=== PATIENT | female | born 1980 | race Caucasian/White ===

== ENCOUNTER → 2016-07-19 | Outpatient (CLI) | payer MEDICAID ==
[~2016-07-19] MED LIST: GUMMY VITAMIN PO
== END ==
LOC: HPND 10:14
PROVIDERS: ATTEND Family Medicine
DX: O09.519 Supervision of elderly primigravida, unspecified trimester (principal)
CPT/HCPCS: 36415; 76805; 76813

== ENCOUNTER → 2016-08-16 | Outpatient (CLI) | payer MEDICAID | LOC: HPND 08:46 | PROVIDERS: ATTEND Family Medicine | DX: O09.522 Supervision of elderly multigravida, second trimester (principal) | CPT/HCPCS: 76811; 76817 ==

== ENCOUNTER → 2016-09-27 | Outpatient (CLI) | payer MEDICAID | LOC: HPND 08:44 | PROVIDERS: ATTEND Family Medicine | DX: O09.522 Supervision of elderly multigravida, second trimester (principal); O44.42 Low lying placenta NOS or without hemorrhage, second trimester; Z3A.24 24 weeks gestation of pregnancy | CPT/HCPCS: 76816; 76817 ==

== ENCOUNTER → 2016-11-02 | Outpatient (CLI) | payer MEDICAID | LOC: HPND 13:06 | PROVIDERS: ATTEND Family Medicine | DX: O44.02 Complete placenta previa NOS or without hemorrhage, second trimester (principal); O09.522 Supervision of elderly multigravida, second trimester | CPT/HCPCS: 76816; 76817 ==

== ENCOUNTER 2017-01-10 13:04 | Inpatient (IN) | payer MEDICAID, OTHER ==
[2017-01-10] VITALS (25 sets, daily range): BP systolic 129; BP diastolic 73; PULSE 45–144; RESP 18; TEMP 97.9
--- NOTE | 2017-01-10 16:57 | PD ---
HPI Chief Complaint Sent by PCP after labor check (Rory Addison MD R1) Travel History International Travel<30 Days: No Contact w/Intl Traveler<30Days: No Known Affected Area: No (Rory Addison MD) History of Present Illness HPI 36 year old at 39 5/7 weeks presented from her PCP office for possible bulging bag. Patient states that she has had a normal with no complications to date. When at a normal labor check today her physician advised her to come into the L&D ED for possible bulging bag on examination. She states she had no contractions, gushes of fluid/blood/discharge from her vagina. Notes some mild low back pain. No changes in urinary habits, bowel movements, shortness of breath, chest pain, pain in her legs, or other complaints at this time. (Rory Addison MD) History Past Medical History Medical History: Denies Significant Hx (Rory Addison MD) Past Surgical History Surgical History: No Previous Surgery (Rory Addison MD) Family History Family History: Negative (Rory Addison MD) Social History Alcohol Use: No Tobacco Use: No Substance Abuse: No (Rory Addison MD) Allergies-Medications (Allergen,Severity, Reaction): Coded Allergies: No Known Allergies (Unverified , 01/10/17) Home Meds Reported Medications [Gummy Vitamin] No Conflict Check, 2 TAB PO DAILY for , #60 0 Refills 07/04/16 Review of Systems General / Constitutional: No: Fever, Chills Eyes: No: Diploplia, Blurred Vision, Visual changes, Pain HENT: No: Headaches, Vertigo, Lightheadedness Cardiovascular: No: Irregular Rhythm, Chest Pain or Discomfort, Palpitations, Tachycardia, Syncope, Edema Respiratory: No: Cough, Short of Breath, Wheezing Gastrointestinal: No: Nausea, Vomiting, Diarrhea, Abdominal Pain, Hematemesis, Hematochezia, Constipation, Changes in Bowel Habits, Indigestion Genitourinary: No: Urgency, Frequency, Dysuria, Nocturia, Hematuria, Decreased Urinary Output, Oliguria, Hesitancy, Dribbling, Incontinence Musculoskeletal: No: Limited ROM, Weakness, Cramping, Edema Skin: No Rash, No Itching, No Dryness, No Lumps, No Lesions Neurologic: No: Weakness, Dizziness, Syncope, Headache Psychiatric: No: Anxiety, Depression Endocrine: No: Heat Intolerance, Cold Intolerance, Polydipsia, Polyuria (Rory Addison MD R1) Physical Exam Narrative GENERAL: Well-nourished, well-developed patient. SKIN: Warm and dry. HEAD: Normocephalic and atraumatic. EYES: No scleral icterus. No injection or drainage. ENT: No nasal drainage noted. Mucous membranes pink. Airway patent. NECK: Supple, trachea midline. No JVD. CARDIOVASCULAR: Regular rate and rhythm without murmurs, gallops, or rubs. RESPIRATORY: Breath sounds equal bilaterally. No accessory muscle use. BREASTS: Bilateral exam showed no masses , no retractions, no nipple discharge. ABDOMEN/GI: Abdomen soft, non-tender, bowel sounds present, no rebound, no guarding Gravid consistent with term gestation GENITOURINARY: External Genitalia: intact and normal in appearance Cervix: per quarryman, posterior (deferred, not reexamined at patient request ) Dilatation: Closed Effacement: 70% Station: -1 Presentation: Vertex, confirmed by external exam Membranes: intact Uterine Contractions: occasional Other: No amniotic sac palpated FHT's: Category: 2 Baseline: 160 Reactive: Yes Variability: moderate Decels: none EXTREMITIES: No cyanosis or edema. BACK: Nontender without obvious deformity. No CVA tenderness. NEUROLOGICAL: Awake and alert. Motor and sensory grossly within normal limits. Five out of 5 muscle strength in all muscle groups. Normal speech. (Rory Addison MD R1) MDM Plan Patient is a 36 at 39 and 5/7 who presented to the ED from her PCP for routine labor check. Currently not in labor. Baseline heart rate borderline high , patient noted that the fetus is typically very active at this time of day. - Encourage hydration and monitor FHR prior to discharge - Patient scheduled for induction 01/17/17 - Patient educated on signs/sx for return and reevaluation Seen and d/w Dr. Vj Mendiola (Rory Addison MD R1) Medical Record Reviewed: Yes Attending Attestation Pt seen and examined with Dr Addison. See the residents documentation for details. Pt clinically not in labor, lowlying vertex apparent on Edmundo's. Vag exam not repeated (declined by pt "I've had enough"), competent L&D nurse exam revealed posterior/closed cervix with prominant vertex on vag exam. There is no evidence labor or concerning Hx to insist on repeat exam. Pt peer counselor provided, I agree with the residents findings and plans as written. PCP notified, pt d/c to home with spouse and instructions (Gertrude Mendiola MD) Diagnosis Diagnosis: Primary Impression: 39 weeks gestation of Disposition: 01 DISCHARGE HOME Condition: Stable Rory Addison MD R1 Jan 10, 2017 16:57 Gertrude Mendiola MD Jan 10, 2017 17:24
[2017-01-10] MEDS ORDERED: SODIUM CHLORIDE 0.9% FLUSH 10 ML FLUSH IV FLUSH PRN (20:15)
--- NOTE | 2017-01-10 20:45 | HHI.HP ---
HPI Chief Complaint sent from provider Date Seen: Jan 10, 2017 (Finn Hare MD, R3) Travel History International Travel<30 Days: No Contact w/Intl Traveler<30Days: No Known Affected Area: No (Finn Hare MD, R3) History of Present Illness HPI Ms. Oliveira is a 36 yo G[address] of [address]. Delcid at 39 5/7 weeks who was sent to OB ED by PCP for concern for cervical dilation/bulging bag. [Per patient/ EMR review, patient seen in OB ED this afternoon: Patient reported back pain but did not report contractions, loss of fluid, vaginal bleeding, shortness of breath, leg swelling, or other symptoms. Cervical exam was performed by nursing staff: closed, 70% effaced, -1 station. Subsequent exam by residents/attending physician was deferred by patient. Patient was placed on EFM and found to tachycardia >160 bpm for >10 minutes which subsequently normalized. Initial decision made for patient to discharge home and follow-up with PCP; however, patient was found to have nonreassuring deceleration to so decision made to admit patient for further observation and for BPP tomorrow morning.] Ms. Oliveira reports that she is feeling ok at this time. Patient states that she has some intermittent back pain but that she does not feel that she is having any contractions. Patient reports normal movement at this time. Patient does not report any concern for vaginal bleeding or loss of vaginal fluid. Patient does not report chest pain, shortness of breath, nausea/vomiting, or dysuria. Weeks Gestation: 37 : 1 (Finn Hare MD, R3) History Past Medical History Medical History: Denies Significant Hx (Finn Hare MD, R3) Obstetric History Obstetric History G1 (Finn Hare MD, R3) Past Surgical History Surgical History: No Previous Surgery (Finn Hare MD, R3) Family History Family History: Negative (Finn Hare MD, R3) Social History Alcohol Use: No Tobacco Use: No Substance Abuse: No (Finn Hare MD, R3) Allergies-Medications (Allergen,Severity, Reaction): Coded Allergies: No Known Allergies (Unverified , 01/10/17) Home Meds Reported Medications [Gummy Vitamin] No Conflict Check, 2 TAB PO DAILY for , #60 0 Refills 07/04/16 Review of Systems General / Constitutional: No: Fever Eyes: No: Blurred Vision HENT: No: Headaches Cardiovascular: No: Chest Pain or Discomfort Respiratory: No: Short of Breath Gastrointestinal: No: Nausea, Vomiting, Abdominal Pain Genitourinary: No: Urgency, Dysuria (Finn Hare MD, R3) Physical Exam T 97.9 BP 138/87 HR 73 RR 18 Narrative GENERAL: Well-nourished, well-developed patient. SKIN: Warm and dry. HEAD: Normocephalic and atraumatic. EYES: No scleral icterus. No injection or drainage. ENT: No nasal drainage noted. Mucous membranes pink. Airway patent. CARDIOVASCULAR: Regular rate and rhythm without murmurs, gallops, or rubs. RESPIRATORY: CTAB, normal rate ABDOMEN/GI: Abdomen soft, non-tender, bowel sounds present, no rebound, no guarding Gravid consistent with term gestation EXTREMITIES: No cyanosis or edema. NEUROLOGICAL: Awake and alert. Motor and sensory function grossly within normal limits. FHT's: Category: 2 Baseline: 130 Reactive: Yes Variability: moderate Decels: sporadic, to ~105 bpm lasting several min, emy after contractions PERFORMED THIS AFTERNOON BY NURSING STAFF* GENITOURINARY: External Genitalia: intact and normal in appearance Cervix: per typesetting machine operator/tender, posterior (deferred, not reexamined at patient request ) Dilatation: Closed Effacement: 70% Station: -1 Presentation: Vertex, confirmed by external exam Membranes: intact Uterine Contractions: occasional Other: No amniotic sac palpated (Finn Hare MD, R3) Caprini VTE Risk Assessment Caprini VTE Risk Assessment: Mod/High Risk (score >= 2) VTE Pharm Contraindication: will defer since obs and can ambulate Caprini Risk Assessment Model Point Value = 1 Point Value = 2 Point Value = 3 Point Value = 5 Age 41-60 Minor surgery BMI > 25 kg/m2 Swollen legs Varicose veins or History of unexplained or recurrent spontaneous Oral contraceptives or hormone replacement Sepsis (< 1 month) Serious lung disease, including pneumonia (< 1 month) Abnormal pulmonary function Acute myocardial infarction Congestive heart failure (< 1 month) History of inflammatory bowel disease Medical patient at bed rest Age 61-74 Arthroscopic surgery Major open surgery (> 45 min) Laparoscopic surgery (> 45 min) Malignancy Confined to bed (> 72 hours) Immobilizing plaster cast Central venous access Age >= 75 History of VTE Family history of VTE Factor V Leiden Prothrombin [id number] Lupus anticoagulant Anticardiolipin antibodies Elevated serum homocysteine Heparin-induced thrombocytopenia Other congenital or acquired thrombophilia Stroke (< 1 month) Elective arthroplasty Hip, pelvis, or leg fracture Acute spinal cord injury (< 1 month) Prophylaxis Regimen Total Risk Factor Score Risk Level Prophylaxis Regimen 0-1 Low Early ambulation 2 Moderate Order ONE of the following: *Sequential Compression Device (SCD) *Heparin 5000 units SQ BID 3-4 Higher Order ONE of the following medications: *Heparin 5000 units SQ TID *Enoxaparin/Lovenox 40 mg SQ daily (WT < 150 kg, CrCl > 30 mL/min) *Enoxaparin/Lovenox 30 mg SQ daily (WT < 150 kg, CrCl > 10-29 mL/min) *Enoxaparin/Lovenox 30 mg SQ BID (WT < 150 kg, CrCl > 30 mL/min) AND/OR *Sequential Compression Device (SCD) 5 or more Highest Order ONE of the following medications: *Heparin 5000 units SQ TID (Preferred with Epidurals) *Enoxaparin/Lovenox 40 mg SQ daily (WT < 150 kg, CrCl > 30 mL/min) *Enoxaparin/Lovenox 30 mg SQ daily (WT < 150 kg, CrCl > 10-29 mL/min) *Enoxaparin/Lovenox 30 mg SQ BID (WT < 150 kg, CrCl > 30 mL/min) AND *Sequential Compression Device (SCD) (Finn Hare MD, R3) Data Data Vital Signs Reviewed: Yes Orders Orders Place In Observation (01/10/17 ) Vital Signs (Adult) [id number] AWAKE (01/10/17 20:03) Heart (01/10/17 20:03) Activity Bed Rest With Brp (01/10/17 20:03) Sodium Chloride 0.9% Flush (Ns Flush) (01/10/17 21:00) Sodium Chloride 0.9% Flush (Ns Flush) (01/10/17 20:15) Complete Blood Count With Diff (01/10/17 20:03) Type And Screen (01/10/17 20:03) Diet Regular Basic (01/10/17 Dinner) Us Ob Bpp Wo Nst (01/11/17 08:00) Group B Strep: Negative (Finn Hare MD, R3) Assessment/Plan Problem List: (1) 39 weeks gestation of ICD Codes: Z3A.39 - 39 weeks gestation of Status: Acute (2) Advanced maternal age, 1st ICD Codes: O09.519 - Supervision of elderly primigravida, unspecified trimester Status: Acute Assessment and Plan 36 at 39 5/7 weeks -Cervix closed/70%/-1 -Cat 2 rhythm- Concern for prolonged deceleration on EFM -Occ contractions on CTG; patient cannot feel -GBS negative Plan: -Will admit for observation and continue EFM -Will plan for AM BPP to assure well being who presented to the ED from her PCP for routine labor check. Currently not in labor. Baseline heart rate borderline high, patient noted that the fetus is typically very active at this time of day. (Finn Hare MD, R3) Attestation Patient seen and examined at bedside. Plan to admit for observation. BPP in am. All questions answered. (Antonia Gaines MD) Finn Hare MD, R3 Jan 10, 2017 20:45 Antonia Gaines MD Jan 10, 2017 21:54
[2017-01-10] MEDS: SODIUM CHLORIDE 0.9% FLUSH 10 ML FLUSH IV FLUSH SCH (21:00)
[2017-01-10 21:39] LABS: AUTOMATED NEUTROPHIL # 6.2 TH/MM3 (1.8-7.7); BASOPHIL # 0.1 TH/MM3 (0-0.2); BASOPHIL % 0.6 % (0.0-2.0); EOSINOPHIL # 0.1 TH/MM3 (0-0.4); EOSINOPHIL % 1.3 % (0.0-4.0); HEMATOCRIT 34.5 % (35.0-46.0); HEMO FLAGS DIFF FINAL; LYMPH % 28.4 % (9.0-44.0); LYMPHOCYTE # 2.9 TH/MM3 (1.0-4.8); MEAN CELL VOLUME 91.4 FL (80.0-100.0); MEAN CORPUSCULAR HEMOGLOBIN 30.7 PG (27.0-34.0); MEAN CORPUSCULAR HGB CONC 33.6 % (32.0-36.0); MONO % 9.2 % (0.0-8.0); NEUT % 60.5 % (16.0-70.0); PLATELET COUNT 228 TH/MM3 (150-450); RED BLOOD COUNT 3.78 MIL/MM3 (4.00-5.30); RED CELL DISTRIBUTION WIDTH 13.3 % (11.6-17.2); WHITE BLOOD COUNT 10.2 TH/MM3 (4.0-11.0)
[2017-01-11] VITALS (158 sets, daily range): BP systolic 87–159; BP diastolic 57–104; PULSE 53–152; RESP 0–20; TEMP 98–98.6; O2SAT 100
--- NOTE | 2017-01-11 08:00 | PD.OB.ANTE ---
Subjective Diagnosis: (1) 39 weeks gestation of (2) Advanced maternal age, 1st Interval History No acute issues overnight. Vitals are stable, patient remains afebrile. She denies any vaginal bleeding or discharge. No gush or leaking of fluid. Positive movement. Antepartum ROS: Reports: movement normal, Denies: New complaints, Loss of fluid, Vaginal bleeding, Contractions (Deirdre Duffy MD, R3) Objective Vital Signs Vital Signs Date Time Temp Pulse Resp B/P (MAP) Pulse Ox O2 Delivery O2 Flow Rate FiO2 01/11/17 07:39 67 126/69 (88) 01/11/17 07:37 98.1 01/11/17 07:35 70 01/11/17 07:30 69 01/11/17 05:20 63 01/11/17 05:15 60 01/11/17 05:10 66 01/11/17 05:05 63 01/11/17 05:00 66 01/11/17 04:55 63 01/11/17 04:50 63 01/11/17 04:45 70 01/11/17 04:40 59 01/11/17 04:35 60 01/11/17 04:30 74 01/11/17 04:25 66 01/11/17 04:20 68 01/11/17 04:15 64 01/11/17 04:10 65 01/11/17 04:00 73 01/11/17 03:55 70 01/11/17 03:50 68 01/11/17 03:45 72 01/11/17 03:40 72 01/11/17 03:35 72 01/11/17 03:30 72 01/11/17 03:25 70 01/11/17 03:20 75 01/11/17 03:15 68 01/11/17 03:10 75 01/11/17 03:05 72 01/11/17 03:00 71 01/11/17 02:55 74 01/11/17 02:50 70 01/11/17 02:45 67 01/11/17 02:40 64 01/11/17 02:35 68 01/11/17 02:30 72 01/11/17 02:25 72 01/11/17 02:20 73 01/11/17 02:15 70 01/11/17 02:10 78 01/11/17 02:05 73 01/11/17 02:00 72 01/11/17 01:55 73 01/11/17 01:50 69 01/11/17 01:45 78 01/11/17 01:35 78 01/11/17 01:25 152 01/11/17 01:20 79 01/11/17 01:15 72 01/11/17 01:10 73 01/11/17 01:05 77 01/11/17 01:00 18 01/11/17 01:00 54 01/11/17 00:50 70 01/11/17 00:45 71 01/11/17 00:40 72 01/11/17 00:35 73 01/11/17 00:30 70 01/11/17 00:25 69 01/11/17 00:20 77 01/11/17 00:15 73 01/11/17 00:10 71 01/11/17 00:05 70 01/11/17 00:00 67 01/10/17 23:49 18 01/10/17 23:49 18 01/10/17 23:45 74 01/10/17 23:40 72 01/10/17 23:35 76 01/10/17 23:30 66 01/10/17 23:25 72 01/10/17 23:20 74 01/10/17 23:15 62 01/10/17 23:10 74 01/10/17 23:05 67 01/10/17 23:00 68 01/10/17 23:00 18 01/10/17 22:55 144 01/10/17 22:50 105 01/10/17 22:40 53 01/10/17 22:30 45 01/10/17 22:10 61 01/10/17 22:05 64 01/10/17 22:00 69 01/10/17 21:50 67 01/10/17 21:45 97.9 63 01/10/17 21:43 63 129/73 (91) 01/10/17 21:42 18 01/10/17 21:40 62 01/10/17 21:35 62 01/10/17 21:30 63 Lab & Micro Results Test 01/10/17 20:40 White Blood Count 10.2 TH/MM3 Red Blood Count 3.78 MIL/MM3 Hemoglobin 11.6 GM/DL Hematocrit 34.5 % Mean Corpuscular Volume 91.4 FL Mean Corpuscular Hemoglobin 30.7 PG Mean Corpuscular Hemoglobin Concent 33.6 % Red Cell Distribution Width 13.3 % Platelet Count 228 TH/MM3 Mean Platelet Volume 10.1 FL Neutrophils (%) (Auto) 60.5 % Lymphocytes (%) (Auto) 28.4 % Monocytes (%) (Auto) 9.2 % Eosinophils (%) (Auto) 1.3 % Basophils (%) (Auto) 0.6 % Neutrophils # (Auto) 6.2 TH/MM3 Lymphocytes # (Auto) 2.9 TH/MM3 Monocytes # (Auto) 0.9 TH/MM3 Eosinophils # (Auto) 0.1 TH/MM3 Basophils # (Auto) 0.1 TH/MM3 CBC Comment DIFF FINAL Differential Comment Physical Exam GENERAL: Well-nourished, well-developed patient. CARDIOVASCULAR: Regular rate and rhythm without murmurs, gallops, or rubs. RESPIRATORY: Breath sounds equal bilaterally. No accessory muscle use. ABDOMEN/GI: Abdomen soft, non-tender. Fundus: 39 GENITOURINARY: External Genitalia: intact and normal in appearance Cervix: posterior Dilatation: 0 Effacement: 70 Station: -1 Presentation: vertex Membranes: intact Uterine Contractions: none FHT's: Category: I Baseline: 140 Reactive: + Variability: moderate Decels: none EXTREMITIES: No cyanosis or edema, non-tender, without signs of DVT. (Deirdre Duffy MD, R3) Assessment and Plan Problem List: (1) 39 weeks gestation of ICD Codes: Z3A.39 - 39 weeks gestation of Status: Acute (2) Advanced maternal age, 1st ICD Codes: O09.519 - Supervision of elderly primigravida, unspecified trimester Status: Acute Assessment and Plan 36 year old at 39-6/7 weeks who presented to the ED from her PCP for routine labor check. Currently not in labor. 1. IUP- Category I tracing, reassuring. 2. Prolonged Deceleration/Category II tracing in ED yesterday- Monitoring overnight reassuring. BPP this AM. -Cervix closed/70%/-1 3. GBS negative 4. BPP 8/8 this AM, CONSTANCE 9.8, cephalic presentation, EFW 13th%ile. MFM recommends delivery by induction. Will admit to L&D for IOL. dw Dr. Gaines (Deirdre Duffy MD, R3) Attestation Patient seen at bedside. Recommended plan for induction d/w patient. R/B/A of induction reviewed. All questions answered. (Antonia Gaines MD) Deirdre Duffy MD, R3 Jan 11, 2017 07:59 Antonia Gaines MD Jan 11, 2017 09:26
[2017-01-11] MEDS: SODIUM CHLORIDE 0.9% FLUSH 10 ML FLUSH IV FLUSH SCH ×2 (09:00→21:00)
[2017-01-11] MEDS ORDERED: SODIUM CHLOR 0.9% 1000 ML INJ 1,000 ML OTHER PRN (09:12)
[2017-01-11] MEDS ORDERED: SODIUM CHLORID 0.9% 500 ML INJ 500 ML IV PRN (09:15)
[2017-01-11] MEDS ORDERED: LIDOCAINE HCL 1% 50 ML VIAL INFIL PRN (09:15)
[2017-01-11] MEDS ORDERED: OXYTOCIN 30 UNITS-500ML PREMIX 500 ML IV ONE (09:15)
[2017-01-11] MEDS ORDERED: MINERAL OIL 10 ML VIAL TOPICAL PRN (09:15)
[2017-01-11] MEDS ORDERED: ONDANSETRON HCL 4 MG/2 ML VIAL IV PRN (09:15)
[2017-01-11] MEDS ORDERED: LACTATED RINGER'S 1000 ML INJ 1,000 ML IV PRN (09:15)
[2017-01-11] MEDS ORDERED: LIDOCAINE HCL 1% 50 ML VIAL I-DERMAL PRN (09:15)
[2017-01-11] MEDS ORDERED: CITRIC ACID-SODIUM CITRATE LIQ 30 ML UDC PO SCH (09:15)
[2017-01-11] MEDS ORDERED: SODIUM CHLORIDE 0.9% FLUSH 10 ML FLUSH IV FLUSH PRN (09:15)
[2017-01-11] MEDS ORDERED: SODIUM CHLOR 0.9% 1000 ML INJ 1,000 ML IV PRN (09:35)
[2017-01-11] MEDS ORDERED: LACTATED RINGER'S 1000 ML INJ 1,000 ML IV SCH (10:00)
[2017-01-11] MEDS ORDERED: MISOPROSTOL 25 MCG SUPP VAGINAL ONE (10:00)
[2017-01-11] MEDS: LACTATED RINGER'S 1000 ML INJ 1,000 ML IV SCH ×2 (11:16→18:00)
[2017-01-11 12:28] LABS: AUTOMATED NEUTROPHIL # 6.1 TH/MM3 (1.8-7.7); BASOPHIL % 0.5 % (0.0-2.0); EOSINOPHIL # 0.1 TH/MM3 (0-0.4); EOSINOPHIL % 1.5 % (0.0-4.0); HEMATOCRIT 33.8 % (35.0-46.0); HEMO FLAGS DIFF FINAL; MEAN CELL VOLUME 91.1 FL (80.0-100.0); MEAN CORPUSCULAR HEMOGLOBIN 30.3 PG (27.0-34.0); MEAN CORPUSCULAR HGB CONC 33.3 % (32.0-36.0); MONO % 9.6 % (0.0-8.0); NEUT % 66.4 % (16.0-70.0); PLATELET COUNT 233 TH/MM3 (150-450); RED BLOOD COUNT 3.71 MIL/MM3 (4.00-5.30); RED CELL DISTRIBUTION WIDTH 13.5 % (11.6-17.2); WHITE BLOOD COUNT 9.1 TH/MM3 (4.0-11.0)
[2017-01-11] MEDS ORDERED: MISOPROSTOL 25 MCG SUPP VAGINAL PRN (14:00)
--- NOTE | 2017-01-11 14:11 | PD.LABORPN ---
Subjective Subjective Patient seen and examined. Doing well has no complaints. She's feeling the baby moving. She denies any feelings of contraction. She understands that it will take quite some time with the Cytotec in order to dilate the cervix. She also understands the game plan to star Pitocin after cervical ripening. She is very excited and can't wait to see her new baby. Objective Vital Signs Vital Signs Date Time Temp Pulse Resp B/P (MAP) Pulse Ox O2 Delivery O2 Flow Rate FiO2 01/11/17 12:18 98.6 01/11/17 12:15 70 135/67 (89) 01/11/17 10:40 73 01/11/17 10:35 74 01/11/17 10:30 72 01/11/17 10:25 73 01/11/17 10:20 73 01/11/17 10:15 75 01/11/17 09:50 68 01/11/17 09:45 74 01/11/17 09:40 70 01/11/17 09:35 70 01/11/17 09:30 70 01/11/17 09:25 80 01/11/17 09:20 72 01/11/17 09:15 64 01/11/17 09:10 68 01/11/17 09:05 61 01/11/17 09:00 62 01/11/17 08:55 74 01/11/17 08:50 62 01/11/17 08:45 62 01/11/17 07:39 67 126/69 (88) 01/11/17 07:37 98.1 01/11/17 07:35 70 01/11/17 07:30 69 01/11/17 07:20 61 01/11/17 07:15 61 01/11/17 07:10 61 01/11/17 07:05 60 01/11/17 07:00 60 01/11/17 06:55 58 01/11/17 06:50 60 01/11/17 06:45 60 01/11/17 06:40 66 01/11/17 06:35 67 01/11/17 06:30 63 01/11/17 06:25 66 01/11/17 06:20 60 01/11/17 06:15 59 01/11/17 06:10 66 01/11/17 06:05 68 Objective GENERAL: Well-nourished, well-developed patient. CARDIOVASCULAR: Regular rate and rhythm without murmurs, gallops, or rubs. RESPIRATORY: Breath sounds equal bilaterally. No accessory muscle use. ABDOMEN/GI: Abdomen soft, non-tender. Fundus: 39 GENITOURINARY: External Genitalia: intact and normal in appearance Cervix: posterior Dilatation: 1 Effacement: 70 Station: -2 Presentation: vertex Membranes: intact Uterine Contractions: none FHT's: Category: I Baseline: 140 Reactive: Up to 160 Variability: moderate Decels: none EXTREMITIES: No cyanosis or edema, non-tender, without signs of DVT. Weeks Gestation: 39 Gest Age Assessed Date: Jan 11, 2017 Gest Age Assessed Time: 14:00 Pt started active labor?: No Medical induction of labor?: Yes Medical induction start date: Jan 11, 2017 Medical induction start time: 08:00 Artificial rupture of membrane: No Assessment/Plan Problem List: (1) 39 weeks gestation of ICD Codes: Z3A.39 - 39 weeks gestation of Status: Acute (2) Advanced maternal age, 1st ICD Codes: O09.519 - Supervision of elderly primigravida, unspecified trimester Status: Acute Assessment and Plan This is a 36-year-old at 39/6 weeks gestational age admitted for induction of labor. 1. Induction of labor: GBS negative -Continuous monitoring for contractions: None -Continuous heart monitoring: Category 1 -Cytotec for cervical ripening -Anticipate transition to Pitocin -Continue expectant management Larry Delcid MD, R3 Jan 11, 2017 14:11
[2017-01-11 17:15] LABS: BLOOD, URINE SMALL (NEG); GLUCOSE,URINE NEG (NEG); KETONE, URINE NEG (NEG); NITRITE,URINE NEG (NEG); PH, URINE 6.5 (5.0-8.5); SQUAMOUS EPITHELIAL CELL URINE <1 /hpf (0-5); URINE COLOR YELLOW (YELLW/STRAW)
[2017-01-11 17:21] LABS: COMMENT (UR) CULT NOT INDICATED; CULTURE IF INDICATED CULT NOT INDICATED
--- NOTE | 2017-01-11 17:37 | PD.LABORPN ---
Subjective Subjective Patient seen and examined. Doing well. She reports some pelvic pressure. She does desire an epidural when it is appropriate. Endorses +FM. She otherwise does not have any complaints or questions. Objective Vital Signs Vital Signs Date Time Temp Pulse Resp B/P (MAP) Pulse Ox O2 Delivery O2 Flow Rate FiO2 01/11/17 16:30 19 01/11/17 16:30 20 01/11/17 16:15 98.0 60 151/75 (100) 01/11/17 15:30 18 01/11/17 14:30 17 01/11/17 13:30 18 01/11/17 12:30 19 01/11/17 12:18 98.6 01/11/17 12:15 70 135/67 (89) 01/11/17 10:40 73 01/11/17 10:35 74 01/11/17 10:30 72 01/11/17 10:25 73 01/11/17 10:20 73 01/11/17 10:15 75 01/11/17 09:50 68 01/11/17 09:45 74 01/11/17 09:40 70 01/11/17 09:35 70 Objective Pelvic Exam (from prior exam at 16:15): Cervix: posterior Dilatation: 2cm Effacement: 80% Station: -2 Presentation: [-] Membranes: intact Uterine Contractions: none on tocometer FHT's: Category: I Baseline: 130s Reactive: yes Variability: mod Decels: none Weeks Gestation: 39 Gest Age Assessed Date: Jan 11, 2017 Gest Age Assessed Time: 14:00 Pt started active labor?: No Medical induction of labor?: Yes Medical induction start date: Jan 11, 2017 Medical induction start time: 08:00 Artificial rupture of membrane: No Assessment/Plan Problem List: (1) 39 weeks gestation of ICD Codes: Z3A.39 - 39 weeks gestation of Status: Acute (2) Advanced maternal age, 1st ICD Codes: O09.519 - Supervision of elderly primigravida, unspecified trimester Status: Acute Assessment and Plan Very pleasant 36-year-old woman at 39/6 weeks gestational age admitted for induction of labor. 1. Induction of labor: GBS negative -Continuous monitoring for contractions: None -Continuous heart monitoring: Category 1 -Cytotec for cervical ripening -Anticipate transition to Pitocin -Continue expectant management -Desiring epidural when appropriate Ramo Greene MD R2 Jan 11, 2017 17:37
[2017-01-11] MEDS ORDERED: SODIUM CHLORIDE 0.9% FLUSH 10 ML FLUSH IV FLUSH SCH (21:00)
[2017-01-11] MEDS ORDERED: ePHEDrine/NS 25 MG/5 ML SYR ONE (21:20)
[2017-01-11] MEDS ORDERED: fentaNYL 2MCG-BUPIV 0.125% INJ 100 ML ONE (21:20)
--- NOTE | 2017-01-11 21:23 | PD.LABORPN ---
Subjective Subjective Patient uncomfortable, requesting pain medication Objective Vital Signs Vital Signs Date Time Temp Pulse Resp B/P (MAP) Pulse Ox O2 Delivery O2 Flow Rate FiO2 01/11/17 19:18 98.5 18 01/11/17 19:18 53 108/60 (76) 01/11/17 18:30 20 01/11/17 18:30 0 01/11/17 17:30 18 01/11/17 16:30 19 01/11/17 16:30 20 01/11/17 16:15 98.0 60 151/75 (100) 01/11/17 15:30 18 01/11/17 14:30 17 01/11/17 13:30 18 Objective Pelvic Exam: Cervix: [3] Dilatation: [3] Effacement: [90] Station: [-1] Presentation: [vtx] Membranes: [spontaneously ruptured] Uterine Contractions: [q3m] FHT's: 140s, moderate LTV, appears to have earlies, IUPC placed to monitor after risks/benefits discussed with patietn Of note, SVE at 2014 was 2/80/-2, posterior, now 3/90/-1, midposition Weeks Gestation: 39 Gest Age Assessed Date: Jan 11, 2017 Gest Age Assessed Time: 14:00 Pt started active labor?: No Medical induction of labor?: Yes Medical induction start date: Jan 11, 2017 Medical induction start time: 08:00 Artificial rupture of membrane: No Assessment/Plan Problem List: (1) 39 weeks gestation of ICD Codes: Z3A.39 - 39 weeks gestation of Status: Acute (2) Advanced maternal age, 1st ICD Codes: O09.519 - Supervision of elderly primigravida, unspecified trimester Status: Acute Zhanna Dior MD Jan 11, 2017 21:23
[2017-01-11] MEDS ORDERED: OXYTOCIN 30 UNITS-500ML PREMIX 500 ML ONE (22:21)
--- NOTE | 2017-01-11 23:06 | PD.LABORPN ---
Subjective Subjective Patient seen and examined. Pain is tolerable. She is feeling the baby moving. She is feeling pelvic pressure. She currently is not wanting to push due to the pain. We are limiting her labor down and anticipate delivery of the baby soon. Objective Vital Signs Vital Signs Date Time Temp Pulse Resp B/P (MAP) Pulse Ox O2 Delivery O2 Flow Rate FiO2 01/11/17 22:31 68 109/68 (82) 01/11/17 22:30 84 01/11/17 22:21 79 109/85 (93) 01/11/17 22:20 73 01/11/17 22:15 69 111/65 (80) 01/11/17 22:15 73 01/11/17 22:10 66 01/11/17 22:10 67 121/63 (82) 01/11/17 22:05 61 01/11/17 22:05 63 109/76 (87) 01/11/17 22:00 69 121/69 (86) 01/11/17 21:56 107 114/72 (86) 01/11/17 21:55 64 01/11/17 21:54 20 01/11/17 21:51 69 109/60 (76) 01/11/17 21:50 66 01/11/17 21:46 68 118/57 (77) 01/11/17 21:45 69 100 01/11/17 21:43 71 141/102 (115) 01/11/17 21:40 61 01/11/17 21:40 68 119/66 (83) 100 01/11/17 21:36 66 148/104 (119) 01/11/17 21:35 67 100 01/11/17 21:32 64 159/76 (103) 01/11/17 21:30 64 154/79 (104) 100 01/11/17 21:30 68 01/11/17 21:25 73 100 01/11/17 21:20 64 100 01/11/17 19:18 98.5 18 01/11/17 19:18 53 108/60 (76) 01/11/17 18:30 20 01/11/17 18:30 0 01/11/17 17:30 18 01/11/17 16:30 19 01/11/17 16:30 20 01/11/17 16:15 98.0 60 151/75 (100) 01/11/17 15:30 18 Objective GENERAL: Well-nourished, well-developed patient. CARDIOVASCULAR: Regular rate and rhythm without murmurs, gallops, or rubs. RESPIRATORY: Breath sounds equal bilaterally. No accessory muscle use. ABDOMEN/GI: Abdomen soft, non-tender. Fundus: 39 GENITOURINARY: External Genitalia: intact and normal in appearance Cervix: posterior Dilatation: 10 Effacement: 100 Station: 1 Presentation: vertex Membranes: Rupture Uterine Contractions: Every 3-4 minutes FHT's: Category: 2 Baseline: 160 Reactive: Up to 165 Variability: moderate Decels: variables Weeks Gestation: 39 Gest Age Assessed Date: Jan 11, 2017 Gest Age Assessed Time: 14:00 Pt started active labor?: No Medical induction of labor?: Yes Medical induction start date: Jan 11, 2017 Medical induction start time: 08:00 Artificial rupture of membrane: No Assessment/Plan Problem List: (1) 39 weeks gestation of ICD Codes: Z3A.39 - 39 weeks gestation of Status: Acute (2) Advanced maternal age, 1st ICD Codes: O09.519 - Supervision of elderly primigravida, unspecified trimester Status: Acute Assessment and Plan This is a 36-year-old at 39/6 weeks gestational age admitted for induction of labor. 1. Induction of labor: GBS negative -Continuous monitoring for contractions: Every 3-4 minutes -Continuous heart monitoring: Category 2 -Epidural in place -Amnio infusion to be placed -Scapal monitoring to be placed -Continue expectant management Larry Delcid MD, R3 Jan 11, 2017 23:06
[2017-01-11] MEDS ORDERED: ePHEDrine/NS 25 MG/5 ML SYR IV PRN (23:30)
[2017-01-11] MEDS ORDERED: NO SYSTEM NARCOTICS PRN (23:30)
[2017-01-11] MEDS ORDERED: fentaNYL 2MCG-BUPIV 0.125% 100 ML EPIDURAL SCH (23:30)
[2017-01-11] MEDS ORDERED: DO NOT ADMINISTER ANTICOAGULANTS PRN (23:30)
[2017-01-12] VITALS (42 sets, daily range): BP systolic 84–154; BP diastolic 45–99; PULSE 67–125; RESP 12–20; TEMP 97.9–100.3; O2SAT 99
[2017-01-12] MEDS ORDERED: OXYTOCIN 30 UNITS-500ML PREMIX 500 ML IV SCH ×2 (00:30→01:45)
--- NOTE | 2017-01-12 01:43 | PD.OB.DELI ---
Weeks gestation: 39 Gest age assessed date: Jan 11, 2017 Gest age assessed time: 14:00 Pt started active labor?: No Medical induction of labor?: Yes Medical induction start date: Jan 11, 2017 Medical induction start time: 08:00 Artificial rupture of membrane: No Anesthesia: Epidural Episiotomy: None Vaginal Delivery: Normal, Spontaneous Presentation: Occiput posterior Nuchal Cord: x1 Delayed cord clamping (45 sec): Yes Infant: Male, Single Delivery date: Jan 12, 2017 Delivery time: 01:30 One Minute : 8 Five Minute : 9 Weight: 3005 Placenta: Spontaneous delivery, Intact, 3 vessel cord Additional Information Healthy male delivered with a nuchal cord x1. Placenta spontaneously delivered without complications. Pitocin started post delivery Larry Delcid MD, R3 Jan 12, 2017 01:43
[2017-01-12] MEDS ORDERED: ACETAMINOPHEN 325 MG TAB PO PRN (01:45)
[2017-01-12] MEDS ORDERED: BENZOCAINE 20% TOPICAL SPRAY 60 ML CAN TOPICAL PRN (01:45)
[2017-01-12] MEDS ORDERED: ONDANSETRON ODT 4 MG TAB PO PRN (01:45)
[2017-01-12] MEDS ORDERED: WITCH HAZEL 50%/GLYCERIN 12.5% 40 PAD JAR TOPICAL PRN (01:45)
[2017-01-12] MEDS ORDERED: ZOLPIDEM TARTRATE 5 MG TAB PO PRN (01:45)
[2017-01-12] MEDS ORDERED: SODIUM CHLORIDE 0.9% FLUSH 10 ML FLUSH IV FLUSH PRN (01:45)
[2017-01-12] MEDS ORDERED: DOCUSATE SODIUM 50 MG/SENNA 8.6 MG TAB PO PRN (01:45)
[2017-01-12] MEDS ORDERED: ALUMINUM/MAGNESIUM/SIMETH 30 ML CUP PO PRN (01:45)
[2017-01-12] MEDS: IBUPROFEN 600 MG TAB PO PRN ×2 (02:17→20:29)
[2017-01-12] MEDS ORDERED: MISOPROSTOL 200 MCG TAB RECTAL ONE (02:30)
[2017-01-12] MEDS ORDERED: ACETAMINOPHEN/CODEINE 300 MG/30 MG TAB PO PRN (03:15)
[2017-01-12] MEDS: ACETAMINOPHEN/CODEINE 300 MG/30 MG TAB PO PRN ×2 (03:23→07:31)
--- NOTE | 2017-01-12 07:54 | PD.OB.ANTE ---
Subjective Diagnosis: (1) 39 weeks gestation of (2) Advanced maternal age, 1st (3) care following vaginal delivery Interval History day # 0. AFVSS overnight. Pain is tolerable. Decreased lochia. Denies dysuria. No breast tenderness. She is feeding the baby via breast. Appetite good. No nausea or vomiting. Negative flatus. Negative bowel movement. Ambulating well. Denies calf pain, shortness of breath, or cough. She is complaining of weakness in her legs, informed her it should improve as the epidural was Otherwise, she is doing well this morning and has no other complaints. Antepartum ROS: Reports: Vaginal bleeding Objective Vital Signs Vital Signs Date Time Temp Pulse Resp B/P (MAP) Pulse Ox O2 Delivery O2 Flow Rate FiO2 01/12/17 07:35 96 111/65 (80) 01/12/17 07:26 90 100/65 (77) 01/12/17 06:30 98 84/53 (63) 01/12/17 06:01 116 87/45 (59) 01/12/17 05:30 92 99/66 (77) 01/12/17 05:09 106 97/45 (62) 01/12/17 04:30 101 94/58 (70) 01/12/17 04:01 98 102/70 (81) 01/12/17 03:31 111/81 (91) 01/12/17 03:16 18 01/12/17 03:15 91 117/96 (103) 01/12/17 03:01 79 15 119/72 (88) 01/12/17 02:50 15 01/12/17 02:46 79 128/99 (109) 01/12/17 02:31 81 102/70 (81) 01/12/17 02:20 16 01/12/17 02:16 78 134/64 (87) 01/12/17 02:03 97.9 15 01/12/17 02:00 86 122/76 (91) 01/12/17 01:50 18 01/12/17 01:46 72 117/91 (100) 01/12/17 01:45 15 01/12/17 01:31 104 126/83 (97) 01/12/17 01:25 101 01/12/17 01:15 125 154/88 (110) 01/12/17 01:01 106 139/96 (110) 01/12/17 00:55 80 01/12/17 00:50 85 01/12/17 00:31 119 118/86 (97) 01/12/17 00:25 85 01/12/17 00:20 89 01/12/17 00:20 89 01/12/17 00:02 77 115/63 (80) 01/12/17 00:00 97 01/11/17 23:55 88 01/11/17 23:55 88 01/11/17 23:50 103 01/11/17 23:50 103 01/11/17 23:32 93 118/65 (82) 01/11/17 23:30 99 01/11/17 23:25 80 01/11/17 23:20 83 01/11/17 23:20 20 01/11/17 23:18 98.4 01/11/17 23:15 81 105/80 (88) 01/11/17 23:15 76 01/11/17 23:10 84 01/11/17 23:05 85 01/11/17 23:02 75 92/68 (76) 01/11/17 23:01 109 87/59 (68) 01/11/17 23:00 83 01/11/17 22:55 81 01/11/17 22:50 81 01/11/17 22:31 68 109/68 (82) 01/11/17 22:30 84 01/11/17 22:21 79 109/85 (93) 01/11/17 22:20 73 01/11/17 22:15 69 111/65 (80) 01/11/17 22:15 73 01/11/17 22:10 66 01/11/17 22:10 67 121/63 (82) 01/11/17 22:05 61 01/11/17 22:05 63 109/76 (87) 01/11/17 22:00 69 121/69 (86) 01/11/17 21:56 107 114/72 (86) 01/11/17 21:55 64 01/11/17 21:54 20 01/11/17 21:51 69 109/60 (76) 01/11/17 21:50 66 01/11/17 21:46 68 118/57 (77) 01/11/17 21:45 69 100 01/11/17 21:43 71 141/102 (115) 01/11/17 21:40 61 01/11/17 21:40 68 119/66 (83) 100 01/11/17 21:36 66 148/104 (119) 01/11/17 21:35 67 100 01/11/17 21:32 64 159/76 (103) 01/11/17 21:30 64 154/79 (104) 100 01/11/17 21:30 68 01/11/17 21:25 73 100 01/11/17 21:20 64 100 01/11/17 19:18 98.5 18 01/11/17 19:18 53 108/60 (76) 01/11/17 18:30 20 01/11/17 18:30 0 01/11/17 17:30 18 01/11/17 16:30 19 01/11/17 16:30 20 01/11/17 16:15 98.0 60 151/75 (100) 01/11/17 15:30 18 01/11/17 14:30 17 01/11/17 13:30 18 01/11/17 12:30 19 01/11/17 12:18 98.6 01/11/17 12:15 70 135/67 (89) 01/11/17 10:40 73 01/11/17 10:35 74 01/11/17 10:30 72 01/11/17 10:25 73 01/11/17 10:20 73 01/11/17 10:15 75 01/11/17 09:50 68 01/11/17 09:45 74 01/11/17 09:40 70 01/11/17 09:35 70 01/11/17 09:30 70 01/11/17 09:25 80 01/11/17 09:20 72 01/11/17 09:15 64 01/11/17 09:10 68 01/11/17 09:05 61 01/11/17 09:00 62 01/11/17 08:55 74 01/11/17 08:50 62 01/11/17 08:45 62 Lab & Micro Results Test 01/11/17 11:35 01/11/17 16:10 White Blood Count 9.1 TH/MM3 Red Blood Count 3.71 MIL/MM3 Hemoglobin 11.2 GM/DL Hematocrit 33.8 % Mean Corpuscular Volume 91.1 FL Mean Corpuscular Hemoglobin 30.3 PG Mean Corpuscular Hemoglobin Concent 33.3 % Red Cell Distribution Width 13.5 % Platelet Count 233 TH/MM3 Mean Platelet Volume 9.3 FL Neutrophils (%) (Auto) 66.4 % Lymphocytes (%) (Auto) 22.0 % Monocytes (%) (Auto) 9.6 % Eosinophils (%) (Auto) 1.5 % Basophils (%) (Auto) 0.5 % Neutrophils # (Auto) 6.1 TH/MM3 Lymphocytes # (Auto) 2.0 TH/MM3 Monocytes # (Auto) 0.9 TH/MM3 Eosinophils # (Auto) 0.1 TH/MM3 Basophils # (Auto) 0.0 TH/MM3 CBC Comment DIFF FINAL Differential Comment Urine Color YELLOW Urine Turbidity CLEAR Urine pH 6.5 Urine Specific [place] 1.020 Urine Protein NEG mg/dL Urine Glucose (UA) NEG mg/dL Urine Ketones NEG mg/dL Urine Occult Blood SMALL Urine Nitrite NEG Urine Bilirubin NEG Urine Urobilinogen LESS THAN 2.0 MG/DL Urine Leukocyte Esterase NEG Urine RBC 2 /hpf Urine WBC 2 /hpf Urine Squamous Epithelial Cells <1 /hpf Microscopic Urinalysis Comment CULT NOT INDICATED Urine Opiates Screen NEG Urine Barbiturates Screen NEG Urine Amphetamines Screen NEG Urine Benzodiazepines Screen NEG Urine Cocaine Screen NEG Urine Cannabinoids Screen NEG Physical Exam GENERAL: Well-nourished, well-developed patient. CARDIOVASCULAR: Regular rate and rhythm without murmurs, gallops, or rubs. RESPIRATORY: Breath sounds equal bilaterally. No accessory muscle use. ABDOMEN/GI: Abdomen soft, non-tender. : Fundus is firm and smaller in size EXTREMITIES: No cyanosis or edema, non-tender, without signs of DVT. Assessment and Plan Problem List: (1) 39 weeks gestation of ICD Codes: Z3A.39 - 39 weeks gestation of Status: Acute (2) Advanced maternal age, 1st ICD Codes: O09.519 - Supervision of elderly primigravida, unspecified trimester Status: Acute Assessment and Plan 36 y/o female who is PPD# 0 s/p . -Continue routine care. -Percocet and Motrin PRN pain. -Encouraged OOB. Advised pelvic rest for 6 wks. -Will need a f/u appt. within 6 wks. -Re: ctrl, she is undecided at this time. -D/c in 1-2 more days. Patient was having some vaginal bleeding post delivery -CBC pending wdw OB attending Larry Delcid MD, R3 Jan 12, 2017 07:54
[2017-01-12 08:58] LABS: MEAN CELL VOLUME 91.9 FL (80.0-100.0); MEAN CORPUSCULAR HEMOGLOBIN 30.1 PG (27.0-34.0); MEAN CORPUSCULAR HGB CONC 32.7 % (32.0-36.0); PLATELET COUNT 179 TH/MM3 (150-450); RED CELL DISTRIBUTION WIDTH 13.1 % (11.6-17.2); REVIEW FLAG FINAL
[2017-01-12] MEDS ORDERED: SODIUM CHLORIDE 0.9% FLUSH 10 ML FLUSH IV FLUSH SCH (09:00)
[2017-01-12] MEDS ORDERED: diphenhydrAMINE HCL 25 MG CAP PO PRN (10:00)
[2017-01-12] MEDS ORDERED: SODIUM CHLOR 0.9% 250 ML INJ 250 ML IV ONE ×2 (10:00→11:30)
[2017-01-12] MEDS ORDERED: METHYLERGONOVINE MALEATE 0.2 MG/ML VIAL IM ONE (10:30)
[2017-01-12] MEDS ORDERED: LORazepam 0.5 MG TAB PO PRN (12:00)
[2017-01-12] MEDS: oxyCODONE/ACETAMINOPHEN 5 MG/325 MG TAB PO PRN ×2 (13:06→20:29)
[2017-01-12] MEDS ORDERED: METHYLERGONOVINE MALEATE 0.2 MG TAB PO SCH (16:00)
[2017-01-12] MEDS ORDERED: MEASLES, MUMPS, RUBELLA VACCINE 0.5 ML VIAL SQ ONE (16:00)
[2017-01-12] MEDS ORDERED: DIPHTH/TETANUS/ACEL PERTUSSIS (BOOSTER) 0.5 ML VIAL/PFS IM ONE (16:00)
[2017-01-12 19:17] LABS: HEMATOCRIT 26.6 % (35.0-46.0); MEAN CELL VOLUME 90.6 FL (80.0-100.0); MEAN CORPUSCULAR HEMOGLOBIN 31.1 PG (27.0-34.0); MEAN CORPUSCULAR HGB CONC 34.3 % (32.0-36.0); PLATELET COUNT 147 TH/MM3 (150-450); RED BLOOD COUNT 2.93 MIL/MM3 (4.00-5.30); RED CELL DISTRIBUTION WIDTH 14.1 % (11.6-17.2); REVIEW FLAG FINAL; WHITE BLOOD COUNT 14.9 TH/MM3 (4.0-11.0)
[2017-01-12] MEDS: METHYLERGONOVINE MALEATE 0.2 MG TAB PO SCH (22:46)
[2017-01-13] MEDS: METHYLERGONOVINE MALEATE 0.2 MG TAB PO SCH ×2 (04:01→10:05)
[2017-01-13] MEDS: IBUPROFEN 600 MG TAB PO PRN ×4 (04:02→21:33)
[2017-01-13] MEDS: oxyCODONE/ACETAMINOPHEN 5 MG/325 MG TAB PO PRN ×4 (04:03→21:34)
[2017-01-13 05:24] LABS: AUTOMATED NEUTROPHIL # 9.1 TH/MM3 (1.8-7.7); BASOPHIL % 0.2 % (0.0-2.0); EOSINOPHIL # 0.2 TH/MM3 (0-0.4); EOSINOPHIL % 1.2 % (0.0-4.0); HEMATOCRIT 26.3 % (35.0-46.0); HEMO FLAGS DIFF FINAL; LYMPH % 21.5 % (9.0-44.0); LYMPHOCYTE # 2.8 TH/MM3 (1.0-4.8); MEAN CELL VOLUME 89.7 FL (80.0-100.0); MEAN CORPUSCULAR HGB CONC 33.5 % (32.0-36.0); MONO % 7.9 % (0.0-8.0); NEUT % 69.2 % (16.0-70.0); PLATELET COUNT 144 TH/MM3 (150-450); RED BLOOD COUNT 2.94 MIL/MM3 (4.00-5.30); RED CELL DISTRIBUTION WIDTH 14.5 % (11.6-17.2); WHITE BLOOD COUNT 13.2 TH/MM3 (4.0-11.0)
[2017-01-13] MEDS ORDERED: OXYC1TAB63 PO (08:30)
[2017-01-13] MEDS ORDERED: SENN1TAB PO (08:30)
[2017-01-13] MEDS ORDERED: IBUP-232 PO (08:30)
[2017-01-13 08:40] VITALS: BP 149/85; PULSE 57; RESP 16; TEMP 97.5
--- NOTE | 2017-01-13 09:44 | HHI.OB ---
Subjective Post Day: 1 Remarks day # 1. AFVSS overnight. Pain is tolerable. Decreased lochia. Denies dysuria. She is feeding the baby via breast. Appetite good. No nausea or vomiting. Ambulating well. Denies calf pain, shortness of breath, or cough. No lightheadedness, dizziness, weakness or problems when she stands up. Otherwise, she is doing well this morning and has no other complaints. Objective Vitals/I&O Vital Signs Date Time Temp Pulse Resp B/P (MAP) Pulse Ox O2 Delivery O2 Flow Rate FiO2 01/13/17 08:40 97.5 57 16 149/85 (106) 01/12/17 20:20 100.3 80 20 124/76 (92) 01/12/17 17:29 98.6 82 16 126/68 99 01/12/17 15:56 98.6 79 16 113/64 99 01/12/17 15:50 111/72 (85) 01/12/17 15:50 99.0 82 18 01/12/17 15:41 98.6 86 18 126/86 99 01/12/17 15:08 98.3 86 16 124/86 99 01/12/17 13:05 98.3 74 16 121/73 01/12/17 12:50 98.8 67 12 139/81 99 01/12/17 11:18 81 16 109/69 (82) Objective Remarks GENERAL: Well-nourished, well-developed patient. CARDIOVASCULAR: Regular rate and rhythm without murmurs, gallops, or rubs. RESPIRATORY: Breath sounds equal bilaterally. No accessory muscle use. ABDOMEN/GI: Abdomen soft, non-tender. Fundus: Firm, non-tender at umbilicus. GENITOURINARY: Light to moderate bleeding. EXTREMITIES: No cyanosis or edema, non-tender, without signs of DVT. Medications and IVs Current Medications Medications (Trade) Dose Ordered Sig/Blanka Route Start Time Stop Time Status Last Admin (NS Flush) 2 ml BID IV FLUSH 01/12/17 09:00 (NS Flush) 2 ml UNSCH PRN IV FLUSH 01/12/17 01:45 (Tylenol) 650 mg Q4H PRN PO 01/12/17 01:45 (Motrin) 600 mg Q6H PRN PO 01/12/17 01:45 01/13/17 04:02 (Percocet 5-325 Mg) 1 tab Q4H PRN PO 01/12/17 01:45 01/13/17 04:03 (Percocet 5-325 Mg) 2 tab Q4H PRN PO 01/12/17 01:45 01/12/17 20:29 (Americaine 20% Top Spr) 1 spray Q4H PRN TOPICAL 01/12/17 01:45 (Tucks Pads) 1 applic QID PRN TOPICAL 01/12/17 01:45 (Indigo-Colace) 2 tab Q12H PRN PO 01/12/17 01:45 (Ambien) 5 mg HS PRN PO 01/12/17 01:45 (Mag-Al Plus Susp Liq) 15 ml Q8H PRN PO 01/12/17 01:45 (Zofran Odt) 4 mg Q6H PRN PO 01/12/17 01:45 (Tylenol-Codeine #3) 1 tab Q4H PRN PO 01/12/17 03:15 (Tylenol-Codeine #3) 2 tab Q4H PRN PO 01/12/17 03:15 01/12/17 07:31 (Benadryl) 25 mg Q4H PRN PO 01/12/17 10:00 (Ativan) 0.5 mg Q12H PRN PO 01/12/17 12:00 (Methergine) 0.2 mg Q6H PO 01/12/17 22:00 01/13/17 04:01 Assessment/Plan Problem List: (1) 39 weeks gestation of ICD Codes: Z3A.39 - 39 weeks gestation of Status: Acute (2) Advanced maternal age, 1st ICD Codes: O09.519 - Supervision of elderly primigravida, unspecified trimester Status: Acute Assessment and Plan 36 y/o female who is PPD# 1 s/p . -Continue routine care. -Percocet and Motrin PRN pain. -Encouraged OOB. Advised pelvic rest for 6 wks. -Will need a f/u appt. within 6 wks. -Re: ctrl, she is considering control pills at this time. -D/c today or tomorrow Patient was having some vaginal bleeding post delivery, lightheaded, dizzy, tired -2 units PRBC 01/12/17 after H/H of 7.2/22.0 -hemoglobin 8.8 this morning -Currently asymptomatic -F/U CBC at 1300 wdw OB attending Rory Addison MD R1 Jan 13, 2017 09:44
[2017-01-13 13:08] LABS: HEMATOCRIT 27.2 % (35.0-46.0); MEAN CELL VOLUME 90.5 FL (80.0-100.0); MEAN CORPUSCULAR HEMOGLOBIN 30.8 PG (27.0-34.0); MEAN CORPUSCULAR HGB CONC 34.1 % (32.0-36.0); PLATELET COUNT 156 TH/MM3 (150-450); RED BLOOD COUNT 3.01 MIL/MM3 (4.00-5.30); RED CELL DISTRIBUTION WIDTH 14.2 % (11.6-17.2); REVIEW FLAG FINAL
--- NOTE | 2017-01-13 13:18 | HHI.DCPOC ---
Discharge Care Plan Diagnosis: (1) PPH ( hemorrhage) (2) care following vaginal delivery Report Symptoms to Your Doctor -Temperature above 100.5 degrees -Redness, of incision or excessive or foul smelling drainage -Unusual pain or calf pain -Increased vaginal bleeding -Painful or difficulty urinating -Feelings of extreme sadness or anxiety after 2 weeks Goals to Promote Your Health * To prevent worsening of your condition and complications * To maintain your health at the optimal level Directions to Meet Your Goals Take your medications as prescribed Follow your dietary instruction Follow activity as directed Ensure plenty of rest for recovery Drink fluids for hydration Keep your appointments as scheduled Take your immunizations and boosters as scheduled If your symptoms worsen call your PCP, if no PCP go to Urgent Care Center or Emergency Room Smoking is Dangerous to Your Health. Avoid second hand smoke Call the 24-hour crisis hotline for domestic abuse at Deirdre Duffy MD, R3 Jan 13, 2017 13:18
[2017-01-13 21:15] VITALS: BP 119/72; PULSE 74; RESP 18; TEMP 98
[2017-01-14 08:00] VITALS: BP 113/69; PULSE 68; RESP 18; TEMP 98.3
[2017-01-14] MEDS: oxyCODONE/ACETAMINOPHEN 5 MG/325 MG TAB PO PRN ×2 (08:21→13:09)
[2017-01-14] MEDS: IBUPROFEN 600 MG TAB PO PRN (08:21)
--- NOTE | 2017-01-14 08:24 | HHI.OB ---
Subjective Remarks day # 2. AFVSS overnight. Pain is tolerable. Decreased lochia. Denies dysuria. She is feeding the baby via breast. Appetite good. No nausea or vomiting. Ambulating well. Denies calf pain, shortness of breath, or cough. No lightheadedness, dizziness, weakness or problems when she stands up. Otherwise, she is doing well this morning and has no other complaints. (Deirdre Duffy MD, R3) Remarks Patient seen and evaluated with resident under direct supervision, agree with assessment and plan. (Navarro Alonzo MD) Objective Vitals/I&O Vital Signs Date Time Temp Pulse Resp B/P (MAP) Pulse Ox O2 Delivery O2 Flow Rate FiO2 01/13/17 21:15 98.0 74 18 119/72 (88) 01/13/17 08:40 97.5 57 16 149/85 (106) Objective Remarks GENERAL: Well-nourished, well-developed patient. CARDIOVASCULAR: Regular rate and rhythm without murmurs, gallops, or rubs. RESPIRATORY: Breath sounds equal bilaterally. No accessory muscle use. ABDOMEN/GI: Abdomen soft, non-tender. Fundus: Firm, non-tender at umbilicus. GENITOURINARY: Light to moderate bleeding. EXTREMITIES: No cyanosis or edema, non-tender, without signs of DVT. Medications and IVs Current Medications Medications (Trade) Dose Ordered Sig/Blanka Route Start Time Stop Time Status Last Admin (NS Flush) 2 ml BID IV FLUSH 01/12/17 09:00 (NS Flush) 2 ml UNSCH PRN IV FLUSH 01/12/17 01:45 (Tylenol) 650 mg Q4H PRN PO 01/12/17 01:45 (Motrin) 600 mg Q6H PRN PO 01/12/17 01:45 01/13/17 21:33 (Percocet 5-325 Mg) 1 tab Q4H PRN PO 01/12/17 01:45 01/13/17 10:05 (Percocet 5-325 Mg) 2 tab Q4H PRN PO 01/12/17 01:45 01/13/17 21:34 (Americaine 20% Top Spr) 1 spray Q4H PRN TOPICAL 01/12/17 01:45 01/13/17 13:51 (Tucks Pads) 1 applic QID PRN TOPICAL 01/12/17 01:45 01/13/17 13:51 (Indigo-Colace) 2 tab Q12H PRN PO 01/12/17 01:45 01/13/17 10:05 (Ambien) 5 mg HS PRN PO 01/12/17 01:45 (Mag-Al Plus Susp Liq) 15 ml Q8H PRN PO 01/12/17 01:45 (Zofran Odt) 4 mg Q6H PRN PO 01/12/17 01:45 (Tylenol-Codeine #3) 1 tab Q4H PRN PO 01/12/17 03:15 (Tylenol-Codeine #3) 2 tab Q4H PRN PO 01/12/17 03:15 01/12/17 07:31 (Benadryl) 25 mg Q4H PRN PO 01/12/17 10:00 (Ativan) 0.5 mg Q12H PRN PO 01/12/17 12:00 (Deirdre Duffy MD, R3) Assessment/Plan Problem List: (1) PPH ( hemorrhage) ICD Codes: O72.1 - Other immediate hemorrhage Qualifiers: Qualified Codes: O72.2 - Delayed and secondary hemorrhage (2) care following vaginal delivery ICD Codes: Z39.2 - Encounter for routine follow-up Assessment and Plan 36 y/o female who is PPD# 2 s/p complicated by PPH. -s/p 2 units PRBC, Hgb now stable at 9.3 -Continue routine care. -Percocet and Motrin PRN pain. -Encouraged OOB. Advised pelvic rest for 6 wks. -Follow-up with Dr. Delcid in 1 week. -Re: ctrl, she is considering control pills at this time. - Discharge home today. dw Dr. Alonzo (Deirdre Duffy MD, R3) Deirdre Duffy MD, R3 Jan 14, 2017 08:24 Navarro Alonzo MD Jan 15, 2017 17:05
[2017-01-16 10:43] LABS: BATH SALTS (MDPV) UR NEG (NEG); ECSTASY (MDMA) UR NEG (NEG); GABAPENTIN UR NEG (NEG); HEROIN (6-ACETYLMORPHINE) UR NEG (NEG); HYDROMORPHONE U NEG (NEG); K2 SPICE UR NEG (NEG); OBMETHADONE UR NEG (NEG); PHENCYCLIDINE URINE NEG (NEG)
== END 2017-01-14 13:40 | disposition home or self-care (01) | DRG 774 ==
LOC: HOBED 13:04 → H2EA 20:39 → H2EB 20:57 → OBSVTOIN 01-11 09:11 → H2EB 01-11 13:37 → H1EA 01-12 04:11 → H2EB 01-12 04:12 → H1EA 01-12 08:05
PROVIDERS: ADMIT Obstetrics & Gynecology; ATTEND Obstetrics & Gynecology
PROC: 3E0P7GC Introduction of Other Therapeutic Substance into Female Reproductive, Via Natural or Artificial Opening (ICD-10-PCS; principal; 2017-01-11)
PROC: 10E0XZZ Delivery of Products of Conception, External Approach (ICD-10-PCS; 2017-01-12)
PROC: 00HU33Z Insertion of Infusion Device into Spinal Canal, Percutaneous Approach (ICD-10-PCS; 2017-01-12)
PROC: 3E0R3CZ (ICD-10-PCS; 2017-01-12)
DX: O69.81X0 Labor and delivery complicated by cord around neck, without compression, not applicable or unspecified (principal); O72.2 Delayed and secondary postpartum hemorrhage; O09.513 Supervision of elderly primigravida, third trimester; Z37.0 Single live birth; Z3A.39 39 weeks gestation of pregnancy
CPT/HCPCS: 36430; 59025; 76816; 76819; 80307; 81001; 85025; 85027; 86850; 86900; 86901; 86920; G0378; G0481; J2210; J2590; J3010; J7120; P9016